=== PATIENT | female | born 1940 | race Two or more races ===

== ENCOUNTER 2021-09-06 17:03 | Inpatient (IN) | payer OTHER ==
[~2021-09-06] VITALS: Ht 149.9 cm; Wt 43.5 kg
[2021-09-06] MEDS ORDERED: MEMANTINE HCL5 MG (17:12)
[2021-09-06] MEDS ORDERED: LIPITOR40 M1 (17:12)
[2021-09-06] MEDS ORDERED: LOSARTAN POTASS50 MG (17:12)
[2021-09-08] MEDS ORDERED: METFORMIN HCL500 M4 (11:21)
[2021-09-08] MEDS ORDERED: METOPROLOL SUC100 MG (11:21)
[2021-09-08] MEDS ORDERED: VENLAFAXINE HCL75 MG (11:21)
[2021-09-08] MEDS ORDERED: FUROSEMIDE20 MG (11:22)
== END 2021-09-08 23:38 | disposition expired | DRG 388 ==
LOC: ER 17:03 → MEDI 09-07 14:55 → SEC-K 09-07 19:21 → MEDI 09-07 19:23
PROVIDERS: ADMIT Internal Medicine; ATTEND Internal Medicine
PROC: BW21YZZ Computerized Tomography (CT Scan) of Abdomen and Pelvis using Other Contrast (ICD-10-PCS; 2021-09-07)
PROC: 0BH17EZ Insertion of Endotracheal Airway into Trachea, Via Natural or Artificial Opening (ICD-10-PCS; principal; 2021-09-08)
PROC: 5A1935Z Respiratory Ventilation, Less than 24 Consecutive Hours (ICD-10-PCS; 2021-09-08)
PROC: 4A12X4Z Monitoring of Cardiac Electrical Activity, External Approach (ICD-10-PCS; 2021-09-08)
DX: K56.690 Other partial intestinal obstruction (principal); I46.9 Cardiac arrest, cause unspecified; J69.0 Pneumonitis due to inhalation of food and vomit; R65.21 Severe sepsis with septic shock; N17.8 Other acute kidney failure; D72.828 Other elevated white blood cell count; I10 Essential (primary) hypertension; G30.8 Other Alzheimer's disease; F02.80 Dementia in other diseases classified elsewhere, unspecified severity, without behavioral disturbance, psychotic disturbance, mood disturbance, and anxiety; E11.9 Type 2 diabetes mellitus without complications; Z79.4 Long term (current) use of insulin; E86.0 Dehydration; E87.8 Other disorders of electrolyte and fluid balance, not elsewhere classified; Z74.01 Bed confinement status